=== PATIENT | male | born 1985 ===

== ENCOUNTER 2021-12-04 14:28 | Inpatient (IN) | payer SELFPAY ==
[2021-12-04] MEDS ORDERED: Furosemide 40 MG/4 ML VIAL ONE (14:40)
[2021-12-04 15:24] LABS: ALT (SGPT) 88 U/L (8-55); AST (SGOT) 87 U/L (5-34); Albumin 3.6 g/dL (3.5-5.0); Alkaline Phosphatase 106 U/L (40-110); Anion Gap 18 mmol/L (10-20); BUN (Urea Nitrogen) 9 mg/dL (8.9-20.6); Bilirubin, Total 1.3 mg/dL (0.2-1.2); Calc. Creatinine Clearance 0 mL/min (70-130); Calcium 8.4 mg/dL (7.8-10.44); Carbon Dioxide 20 mmol/L (22-29); Chloride 105 mmol/L (98-107); Estimated GFR 66; Globulin 3.4 g/dL (2.4-3.5); Glucose 398 mg/dL (70-105); Lipase 49 U/L (8-78); Magnesium 1.7 mg/dL (1.6-2.6); Potassium 3.7 mmol/L (3.5-5.1); Sodium 139 mmol/L (136-145)
[2021-12-04 15:37] LABS: Bacteria/HPF None Seen HPF (None Seen); Bilirubin Negative (Negative); Blood, Urine Trace (Negative); Clarity Clear (Clear); Glucose, Urine (Dipstick) Greater than 1000 mg/dL (Negative); Ketone, Urine Negative (Negative); Leukocyte Negative Leu/uL (Negative); Nitrite Negative (Negative); Protein, Urine (Dipstick) 100 mg/dL (Neg-Trace); RBC/HPF 0-3 HPF (0-3); Specific Gravity, Urine 1.019 (1.002-1.036); Squamous Epithelial 0-3 HPF (0-3); Urobilinogen Normal mg/dL (Less than 2); WBC/HPF 0-3 HPF (0-3)
[2021-12-04 16:10] LABS: CKMB 8.9 ng/mL (0-6.6)
[2021-12-04 17:04] LABS: SARS-CoV-2 NAA Rapid Test Not Detected (NotDetected)
[2021-12-04] MEDS ORDERED: Piperacillin/Tazobactam 3.375 GM VIAL ONE (17:36)
[2021-12-04] MEDS ORDERED: Ondansetron PF 4 MG/2 ML Vial IVP PRN (18:35)
[2021-12-04] MEDS ORDERED: Ondansetron ODT 4 MG TAB PO PRN (18:35)
[2021-12-04] MEDS ORDERED: Bisacodyl 5 MG TAB PO PRN (18:35)
[2021-12-04] MEDS ORDERED: Senokot S 8.6-50 MG TAB PO PRN (18:35)
[2021-12-04] MEDS ORDERED: Dextrose 5% in Water 1,000 ML IV PRN (18:35)
[2021-12-04] MEDS ORDERED: Bisacodyl 10 MG SUPP PR PRN (18:35)
[2021-12-04] MEDS ORDERED: Dextrose 50% Abboject 50 ML SYRINGE SLOW IVP PRN (18:35)
[2021-12-04] MEDS ORDERED: HumaLOG 300 UNITS/3 ML VIAL SC PRN (18:42)
[2021-12-04 18:46] VITALS: BMI 47.7
[2021-12-04] MEDS ORDERED: hydrALAZINE 20 MG/ML VIAL SLOW IVP PRN (18:54)
[2021-12-04 19:51] LABS: Troponin I 2.653 ng/mL (< 0.028)
[2021-12-04 19:59] LABS: #Eosinphils 0.1 thou/uL (0.0-0.7); #Lymphocytes 1.9 thou/uL (1.20-3.40); #Monocytes 0.7 thou/uL (0.11-0.59); #Neutrophils 10.9 thou/uL (1.40-6.50); %Basophils 0.2 % (0.0-1.0); %Eosinophils 0.4 % (0.0-10.0); %Lymphocytes 14.3 % (21.0-51.0); %Neutrophils 80.1 % (42.0-75.0); Mean Corpuscular HGB CONC 32.6 g/dL (32.0-36.0); Mean Corpuscular Hemoglobin 30.9 pg (27.0-31.0); Mean Corpuscular Volume 94.9 fL (78.0-98.0); Mean Platelet Volume 9.9 fL (7.4-10.4); Platelet Count 157 thou/uL (130-400); RBC Distribution Width 12.6 % (11.5-14.5); Red Blood Cell (RBC) Count 5.16 mill/uL (4.70-6.10); White Blood Cell (WBC) Count 13.6 thou/uL (4.8-10.8)
[2021-12-04 20:20] LABS: Hemoglobin A1c 10.1 % (4.0-6.0)
[2021-12-04 20:30] LABS: CKMB 24.7 ng/mL (0-6.6)
[2021-12-04] MEDS: Famotidine 20 MG TAB PO SCH (20:46)
[2021-12-04 20:49] LABS: Actual Bicarbonate (HCO3a) 29.3 mEq/L (22-28); Base Excess (BEa) 2.2 mEq/L (-2.0 to +3.0); CO2 Tension 54.9 mmHg (35.0-45.0); Calcium, Ionized (arterial) 1.17 mmol/L (1.12-1.30); Carboxyhemoglobin (COHb) 0.7 gm% (0.0-3.0); Potassium - ABG Lab 3.63 mmol/L (3.70-5.30); pH, Arterial 7.35 (7.35-7.45)
[2021-12-04] MEDS ORDERED: Carvedilol 6.25 MG TAB PO SCH (21:00)
[2021-12-04 21:26] LABS: Amphetamine Not Detected (NotDetected); Barbiturates Screen Not Detected (NotDetected); Benzodiazepine Screen Not Detected (NotDetected); Cocaine Metabolite Screen Not Detected (NotDetected); Methadone Not Detected (NotDetected); Methamphetamine Not Detected (NotDetected); Opiate Screen Not Detected (NotDetected); Oxycodone Screen Not Detected (NotDetected); Phencyclidine (PCP) Not Detected (NotDetected); THC/Cannabinoid Screen Not Detected (NotDetected); Tricyclic Screen Not Detected (NotDetected)
[2021-12-04 21:27] LABS: O2 Tension (PaO2), arterial 56.2 mmHg (80.0-100.0)
[2021-12-04 21:28] LABS: ALV-art Gradient 89.075 mmHg (0-20); Puncture Site LRA
[2021-12-04] MEDS ORDERED: Furosemide 40 MG/4 ML VIAL SLOW IVP SCH (22:15)
[2021-12-04 23:06] LABS: Troponin I 4.066 ng/mL (< 0.028)
[2021-12-05 03:55] LABS: #Basophils 0.1 thou/uL (0.0-0.2); #Eosinphils 0.1 thou/uL (0.0-0.7); #Lymphocytes 1.9 thou/uL (1.20-3.40); #Monocytes 0.6 thou/uL (0.11-0.59); #Neutrophils 8.2 thou/uL (1.40-6.50); %Basophils 0.5 % (0.0-1.0); %Eosinophils 1.1 % (0.0-10.0); %Lymphocytes 17.7 % (21.0-51.0); %Monocytes 5.8 % (0.0-10.0); Hemoglobin 14.9 g/dL (14.0-18.0); Mean Corpuscular HGB CONC 35.1 g/dL (32.0-36.0); Mean Corpuscular Hemoglobin 32.7 pg (27.0-31.0); Mean Corpuscular Volume 93.2 fL (78.0-98.0); Mean Platelet Volume 9.9 fL (7.4-10.4); Platelet Count 129 thou/uL (130-400); RBC Distribution Width 12.4 % (11.5-14.5); Red Blood Cell (RBC) Count 4.56 mill/uL (4.70-6.10)
[2021-12-05 04:19] LABS: Anion Gap 11 mmol/L (10-20); BUN (Urea Nitrogen) 10 mg/dL (8.9-20.6); Calc. Creatinine Clearance 213 mL/min (70-130); Calcium 8.3 mg/dL (7.8-10.44); Carbon Dioxide 31 mmol/L (22-29); Chloride 103 mmol/L (98-107); Estimated GFR 112; Glucose 219 mg/dL (70-105); Potassium 3.2 mmol/L (3.5-5.1); Sodium 142 mmol/L (136-145)
[2021-12-05] MEDS ORDERED: Iopamidol 370 76% 100 ML VIAL ONE (07:32)
[2021-12-05] MEDS: Famotidine 20 MG TAB PO SCH (09:00)
[2021-12-05] MEDS: Enoxaparin Sodium 40 MG/0.4 ML SYRINGE SC SCH (09:00)
[2021-12-05] MEDS ORDERED: Furosemide 20 MG TAB PO SCH (09:00)
[2021-12-05 09:24] VITALS: BP 175/115
[2021-12-05] MEDS ORDERED: Potassium Chloride 20 MEQ TAB PO SCH (11:15)
[2021-12-05] MEDS ORDERED: Valsartan 80 MG TAB PO SCH (11:30)
[2021-12-05] MEDS: Acetaminophen 325 MG TAB PO PRN ×2 (13:21→20:14)
[2021-12-05] MEDS ORDERED: Fentanyl 100 MCG/2 ML VIAL ONE (17:51)
[2021-12-05] MEDS ORDERED: Adenosine 6 MG/2 ML VIAL ONE (17:52)
[2021-12-05] MEDS ORDERED: Lidocaine 1% PF 5 ML VIAL ONE (17:52)
[2021-12-05] MEDS ORDERED: Nitroglycerin 100MG/250ML BOT 250 ML ONE (17:52)
[2021-12-05] MEDS ORDERED: Heparin 10,000 UNITS/ 10 ML VIAL ONE (17:52)
[2021-12-05] MEDS ORDERED: Verapamil 5 MG/2 ML VIAL ONE (17:52)
[2021-12-05] MEDS ORDERED: Midazolam HCl 2 mg/2 ml Vial ONE (17:52)
[2021-12-05] MEDS: metFORMIN 500 MG TAB PO SCH (18:33)
[2021-12-05] MEDS ORDERED: hydrALAZINE 20 MG/ML VIAL ONE (18:41)
[2021-12-05] MEDS: Atorvastatin Calcium 40 MG TAB PO SCH (20:14)
[2021-12-05] MEDS: Carvedilol 25 MG TAB PO SCH (20:14)
[2021-12-05] MEDS: Valsartan 80 MG TAB PO SCH (20:14)
[2021-12-05] MEDS: Bumetanide 1 MG TAB PO SCH (20:14)
[2021-12-06 03:54] LABS: #Eosinphils 0.2 thou/uL (0.0-0.7); #Lymphocytes 1.7 thou/uL (1.20-3.40); #Monocytes 0.6 thou/uL (0.11-0.59); #Neutrophils 4.9 thou/uL (1.40-6.50); %Basophils 0.2 % (0.0-1.0); %Eosinophils 2.3 % (0.0-10.0); %Monocytes 7.7 % (0.0-10.0); %Neutrophils 66.8 % (42.0-75.0); Hemoglobin 14.2 g/dL (14.0-18.0); Mean Corpuscular HGB CONC 32.2 g/dL (32.0-36.0); Mean Corpuscular Hemoglobin 30.6 pg (27.0-31.0); Mean Corpuscular Volume 95.2 fL (78.0-98.0); Platelet Count 140 thou/uL (130-400); RBC Distribution Width 12.5 % (11.5-14.5); Red Blood Cell (RBC) Count 4.63 mill/uL (4.70-6.10); White Blood Cell (WBC) Count 7.3 thou/uL (4.8-10.8)
[2021-12-06 04:18] LABS: Anion Gap 11 mmol/L (10-20); BUN (Urea Nitrogen) 10 mg/dL (8.9-20.6); Calc. Creatinine Clearance 233 mL/min (70-130); Calcium 8.9 mg/dL (7.8-10.44); Carbon Dioxide 30 mmol/L (22-29); Chloride 100 mmol/L (98-107); Estimated GFR 116; Glucose 266 mg/dL (70-105); Potassium 3.3 mmol/L (3.5-5.1); Sodium 138 mmol/L (136-145)
[2021-12-06] MEDS: HumaLOG 300 UNITS/3 ML VIAL SC PRN ×2 (06:28→12:28)
[2021-12-06] MEDS ORDERED: Potassium Chloride 20 MEQ TAB PO SCH (09:00)
[2021-12-06] MEDS: metFORMIN 500 MG TAB PO SCH ×2 (09:18→16:12)
[2021-12-06] MEDS: Bumetanide 1 MG TAB PO SCH ×2 (09:18→20:54)
[2021-12-06] MEDS: Enoxaparin Sodium 40 MG/0.4 ML SYRINGE SC SCH (09:18)
[2021-12-06] MEDS: Carvedilol 25 MG TAB PO SCH ×2 (09:19→20:54)
[2021-12-06] MEDS: Spironolactone 25 MG TAB PO SCH (09:19)
[2021-12-06] MEDS: Aspirin Chewable 81 MG TAB PO SCH (09:19)
[2021-12-06] MEDS: Valsartan 80 MG TAB PO SCH ×2 (09:19→20:54)
[2021-12-06] MEDS: Atorvastatin Calcium 40 MG TAB PO SCH (20:54)
[2021-12-07 03:40] LABS: #Eosinphils 0.1 thou/uL (0.0-0.7); #Lymphocytes 2.1 thou/uL (1.20-3.40); #Monocytes 0.5 thou/uL (0.11-0.59); #Neutrophils 4.6 thou/uL (1.40-6.50); %Basophils 0.3 % (0.0-1.0); %Eosinophils 1.9 % (0.0-10.0); %Lymphocytes 28.9 % (21.0-51.0); %Monocytes 6.4 % (0.0-10.0); %Neutrophils 62.5 % (42.0-75.0); Mean Corpuscular HGB CONC 32.7 g/dL (32.0-36.0); Mean Corpuscular Volume 94.6 fL (78.0-98.0); Mean Platelet Volume 9.8 fL (7.4-10.4); Platelet Count 139 thou/uL (130-400); RBC Distribution Width 12.5 % (11.5-14.5); Red Blood Cell (RBC) Count 4.83 mill/uL (4.70-6.10); White Blood Cell (WBC) Count 7.4 thou/uL (4.8-10.8)
[2021-12-07 04:01] LABS: Anion Gap 13 mmol/L (10-20); BUN (Urea Nitrogen) 12 mg/dL (8.9-20.6); Calc. Creatinine Clearance 230 mL/min (70-130); Carbon Dioxide 31 mmol/L (22-29); Chloride 102 mmol/L (98-107); Estimated GFR 116; Glucose 161 mg/dL (70-105); Potassium 3.3 mmol/L (3.5-5.1); Sodium 143 mmol/L (136-145)
[2021-12-07] MEDS: HumaLOG 300 UNITS/3 ML VIAL SC PRN (05:50)
[2021-12-07] MEDS: Bumetanide 1 MG TAB PO SCH (07:36)
[2021-12-07] MEDS: Aspirin Chewable 81 MG TAB PO SCH (07:36)
[2021-12-07] MEDS: Valsartan 80 MG TAB PO SCH (07:37)
[2021-12-07] MEDS: Spironolactone 25 MG TAB PO SCH (07:37)
[2021-12-07] MEDS: Carvedilol 25 MG TAB PO SCH (07:37)
[2021-12-07] MEDS: metFORMIN 500 MG TAB PO SCH (07:37)
[2021-12-07] MEDS: Enoxaparin Sodium 40 MG/0.4 ML SYRINGE SC SCH (07:38)
[2021-12-07] MEDS ORDERED: Potassium Chloride 20 MEQ TAB PO SCH (08:00)
[2021-12-07] MEDS ORDERED: Spironolactone 25 MG TAB PO SCH (09:00)
[2021-12-07] MEDS ORDERED: glipiZIDE 5 MG TAB PO SCH (10:30)
[2021-12-07 15:13] VITALS: TEMP 97.7
[2021-12-08] MEDS ORDERED: glipiZIDE 5 MG TAB PO SCH (07:30)
== END 2021-12-07 18:24 | disposition home or self-care (01) | DRG 189 ==
LOC: ERS 14:28 → IMCU/EMU 16:36
PROVIDERS: ADMIT Emergency Medicine; ATTEND Emergency Medicine
PROC: 5A09357 Assistance with Respiratory Ventilation, Less than 24 Consecutive Hours, Continuous Positive Airway Pressure (ICD-10-PCS; 2021-12-04)
PROC: 4A023N7 Measurement of Cardiac Sampling and Pressure, Left Heart, Percutaneous Approach (ICD-10-PCS; principal; 2021-12-05)
PROC: B2111ZZ Fluoroscopy of Multiple Coronary Arteries using Low Osmolar Contrast (ICD-10-PCS; 2021-12-05)
PROC: B2151ZZ Fluoroscopy of Left Heart using Low Osmolar Contrast (ICD-10-PCS; 2021-12-05)
DX: J96.01 Acute respiratory failure with hypoxia (principal); I42.8 Other cardiomyopathies; J81.1 Chronic pulmonary edema; I50.20 Unspecified systolic (congestive) heart failure; I11.0 Hypertensive heart disease with heart failure; G47.33 Obstructive sleep apnea (adult) (pediatric); E87.6 Hypokalemia; Z20.822 Contact with and (suspected) exposure to COVID-19
CPT/HCPCS: 36415; 36416; 36600; 70450; 71045; 71250; 72125; 80048; 80053; 80306; 81003; 81015; 82553; 82805; 83036; 83690; 83735; 83880; 84484; 85025; 93005; 93306; 93458; 94660; 96365; 96375; C1769; J0153; J0360; J1644; J1650; J1940; J2250; J2543; J3010; Q9967; U0002